=== PATIENT | female | born 1950 | race Hispanic/Latino ===

== ENCOUNTER → 2018-02-14 | Outpatient (CLI) | payer MEDICARE ==
--- NOTE | 2018-02-14 15:43 | Diagnostic Imaging Report ---
PROCEDURE:US THYROID COMPARISON:None. INDICATIONS:Thyroid Nodule TECHNIQUE:Transverse and sagittal images were obtained of the thyroid gland. FINDINGS: THYROID GLAND: SIZE: RIGHT LOBE:4.9 x 1.3 x 1.6 cmNormal in size. LEFT LOBE:4.1 x 1.1 x 1.4 cmNormal in size. ISTHMUS:0.4 cm Normal in size. APPEARANCE:Homogeneous echotexture without increased vasularity MASSES/Nodules:None PARATHYROID: No focal parathyroid masses. CONCLUSION: Normal thyroid. No nodules. Dictated by: Yobany Sanchez M.D. on 02/14/2018 at 15:45 Electronically approved by: Yobany Sanchez M.D. on 02/14/2018 at 15:45
== END ==
LOC: US 14:23
PROVIDERS: ATTEND Family Medicine
DX: E04.1 Nontoxic single thyroid nodule (principal)
CPT/HCPCS: 76536